=== PATIENT | male | born 1950 | race Caucasian/White ===

== ENCOUNTER 2016-11-25 08:25 | Inpatient (IN) | payer OTHER ==
[~2016-11-25] VITALS: Ht 177.8 cm; Wt 112.9 kg
[2016-11-25] VITALS (25 sets, daily range): BP systolic 82–126; BP diastolic 48–90
--- NOTE | ~2016-11-25 | EKG ---
[address] [place] [address] ELECTROCARDIOGRAM REPORT Name: MARTHA CUMMINS Room #: 209-P ADM IN M.R.#: [id number] Admission: 11/25/16 Attend Phys: Av Borrego MD, Discharge: Date of : 50 Report #: [id number] THIS REPORT FOR: //name// [facility] ED Test Date: 2016-11-25 Test Time: 08:26:22 Pat Name: MARTHA CUMMINS Department: Room: 209 Gender: M Beverage Steward: ALVARO : 1950 Requested By: Ben Salazar Order Number: [id number] : Mark Oliva Measurements Intervals [place] Rate: 53 P: 47 [place]: 187 QRS: -47 QRSD: 107 T: 72 QT: 436 QTc: 410 Interpretive Statements Sinus rhythm Inferoposterior infarct, acute (LCx) Lateral infarct, acute ST depression V1-V3, suggest recording posterior leads Baseline wander in lead(s) II,III,aVR,aVF Compared to ECG 07/22/2011 06:56:45 Myocardial infarct finding now present ST (T wave) deviation now present Incomplete right bundle-branch block no longer present Electronically Signed On 11-26-2016 22:14:48 CDT by Mark Oliva [email or web address] <ELECTRONICALLY SIGNED> By: Mark Oliva MD 11/26/16 2214 5 5 Mark Oliva MD /EPI
--- NOTE | ~2016-11-25 | EKG ---
[address] [address] ELECTROCARDIOGRAM REPORT Name: MARTHA CUMMINS Room #: 209-P [facility] IN M.R.#: [id number] Admission: 11/25/16 Attend Phys: Av Borrego MD, Discharge: Date of : 50 Report #: [id number] THIS REPORT FOR: //name// [facility] Test Date: 2016-11-26 Test Time: 14:32:59 Pat Name: MARTHA CUMMINS Department: Room: 209 Gender: M Product Marketing Intern: lou : 1950 Requested By: Av Borrego Order Number: [id number] MD: Mark Oliva Measurements Intervals [place] Rate: 52 P: 45 [place]: 177 QRS: -90 QRSD: 105 T: 42 QT: 452 QTc: 421 Interpretive Statements Sinus rhythm Inferior infarct, old Compared to ECG 07/22/2011 06:56:45 Myocardial infarct finding now present Incomplete right bundle-branch block no longer present Electronically Signed On 11-26-2016 22:31:22 CDT by Mark Oliva [email or web address] <ELECTRONICALLY SIGNED> By: Mark Oliva MD 11/26/16 2231 1432 1432 Mark Oliva MD /EPI
--- NOTE | ~2016-11-25 | 2DMMODE ---
[facility] [address] [place] [address] 2 D/M-MODE ECHOCARDIOGRAM Name: MARTHA CUMMINS Room #: 209-P ADM IN M.R.#: [id number] Admission: 11/25/16 Attend Phys: Av Borrego, Discharge: Date of : 50 Date of Service: 11/27/16 0947 Report #: [id number] THIS REPORT FOR: //name// APPROVED REPORT Study performed: 11/27/2016 09:00:48 EXAM: Comprehensive 2D, Doppler, and color-flow Echocardiogram Patient Location: Bedside Room #: 209 Status: routine Other Information Study Quality: Good Indications Acute FL Diabetes Chest Pain Hypertension/HDD 2D Dimensions RVDd: 38.26 mm LVEF(%): 50.79 (>50%) IVSd: 8.75 (7-11mm) LVOT Diam: 27.78 (18-24mm) LVDd: 55.65 mm PWd: 10.98 (7-11mm) Ascending Ao: 32.09 (22-36mm) LVDs: 41.07 (25-40mm) Aortic Root: 31.06 mm IVC: 31.00 mm Friedman's LVEF: 50.79 % Volumes Left Atrial Volume (Systole) Single Plane 4CH: 76.59 mL Single Plane 2CH: 69.64 mL LA ESV Index: 34.00 mL/m2 Aortic Valve AoV Peak Wolf.: 1.49 m/s AO Peak Gr.: 8.92 mmHg LVOT Max P.38 mmHg LVOT Max V: 1.05 m/s ELISSA Vmax: 4.25 cm2 Mitral Valve E/A Ratio: 1.2 MV Decel. Time: 185.30 ms MV E Max Wolf.: 1.12 m/s [facility] [place] [address] 2 D/M-MODE ECHOCARDIOGRAM Name: MARTHA CUMMINS [facility] Room #: 209-P [facility] IN M.R.#: [id number] Admission: 11/25/16 Attend Phys: Av Borrego, Discharge: Date of : 50 Date of Service: 11/27/16 0947 Report #: [id number] MV A Wolf.: 0.94 m/s MV PHT: 53.74 ms IVRT: 92.27 ms Pulmonary Valve PV Peak Wolf.: 1.10 m/s PV Peak Gr.: 4.84 mmHg Pulmonary Vein P Vein S: 0.46 m/s P Vein A: 0.24 m/s P Vein D: 0.33 m/s P Vein A Dur.: 110.7 msec P Vein S/D Ratio: 1.39 Tricuspid Valve RAP Estimate: 10.00 mmHg Left Ventricle The left ventricle is normal size. Regional wall motion is not well visualized but grossly normal. There is normal left ventricular wall thickness. The left ventricular systolic function is normal. The left ventricular ejection fraction is within the normal range. LVEF is 50%. Grade II diastolic dysfunction Right Ventricle The right ventricle is normal size. The right ventricular systolic function is normal. Atria Left atrium is borderline dilated. Right atrium is at the upper limits of normal. Aortic Valve The aortic valve is normal in structure. No aortic regurgitation is present. There is no aortic valvular stenosis. Mitral Valve The mitral valve is mildly sclerotic Trace mitral regurgitation. No evidence of mitral valve stenosis. Tricuspid Valve The tricuspid valve is normal in structure. There is no tricuspid valve stenosis. There is no tricuspid valve regurgitation noted. Pulmonic Valve The pulmonary valve is normal in structure. There is no pulmonic valvular regurgitation. [address] [address] 2 D/M-MODE ECHOCARDIOGRAM Name: MARTHA CUMMINS Room #: 209-P [facility] IN [facility]#: [id number] Admission: 11/25/16 Attend Phys: Av Borrego, Discharge: Date of : 50 Date of Service: 11/27/16 0947 Report #: [id number] Great Vessels The aortic root is normal in size. IVC is dilated and collapses >50% with inspiration. Pericardium There is no pericardial effusion. <Conclusion> The left ventricular systolic function is normal. Regional wall motion is not well visualized but grossly normal. LVEF is 50%. Grade II diastolic dysfunction The aortic valve is normal in structure. No aortic regurgitation or stenosis The mitral valve is mildly sclerotic. Trace mitral regurgitation. Pulmonary artery pressure could not be reliably ascertained There is no pericardial effusion. <ELECTRONICALLY SIGNED> By: Av Borrego MD, [facility] 11/27/1647 6 6 Av Borrego MD, FACC /INF
--- NOTE | ~2016-11-25 | EKG ---
[address] [address] ELECTROCARDIOGRAM REPORT Name: MARTHA CUMMINS Room #: 209-P [facility] IN M.R.#: [id number] Admission: 11/25/16 Attend Phys: Av Borrego MD, Discharge: Date of : 50 Report #: [id number] THIS REPORT FOR: //name// [facility] Test Date: 2016-11-25 Test Time: 14:48:59 Pat Name: MARTHA CUMMINS Department: Room: 209 Gender: M Steel Cutter: RALF : 1950 Requested By: Ben Salazar Order Number: [id number] MD: Mark Oliva Measurements Intervals [place] Rate: 52 P: 52 [place]: 207 QRS: 264 QRSD: 110 T: 56 QT: 454 QTc: 423 Interpretive Statements Sinus rhythm Inferior infarct, old Compared to ECG 07/22/2011 06:56:45 Myocardial infarct finding now present Incomplete right bundle-branch block no longer present Electronically Signed On 11-26-2016 22:19:05 CDT by Mark Oliva [email or web address] <ELECTRONICALLY SIGNED> By: Mark Oliva MD 11/26/16 2219 1448 1448 Mark Oliva MD /EPI
--- NOTE | ~2016-11-25 | EKG ---
[address] [address] ELECTROCARDIOGRAM REPORT Name: MARTHA CUMMINS Room #: 209-P [facility] IN M.R.#: [id number] Admission: 11/25/16 Attend Phys: Av Borrego MD, Discharge: Date of : 50 Report #: [id number] THIS REPORT FOR: //name// [facility] Test Date: 2016-11-26 Test Time: 08:00:48 Pat Name: MARTHA CUMMINS Department: Room: 209 Gender: M Pressure Dispatcher: ISMAEL : 1950 Requested By: Av Borergo Order Number: [id number] MD: Mark Oliva Measurements Intervals [place] Rate: 49 P: 48 [place]: 193 QRS: 260 QRSD: 108 T: 48 QT: 471 QTc: 426 Interpretive Statements Sinus bradycardia Probable left atrial enlargement Inferior infarct, old Compared to ECG 07/22/2011 06:56:45 Myocardial infarct finding now present Sinus rhythm no longer present Incomplete right bundle-branch block no longer present Electronically Signed On 11-26-2016 22:26:33 CDT by Mark Oliva [email or web address] <ELECTRONICALLY SIGNED> By: Mark Oliva MD 11/26/166 9 08 Mark Oliva MD /EPI
[~2016-11-25 08:25] MED LIST: ALLOPURINOL 30300 M2 PO; ASPIRIN EC325 M1 PO; BENICAR40 MG PO; CATAPRES-TTS 20.2 MG TD; Effient PO; FISH OIL 1,0001 EAC8 PO; GLIPIZIDE ER10 MG PO; MULTIVITAMINS PO; POTASSIUM20 PO; TORSEMIDE100 MG PO; TRILIPIX135 MG PO; WELCHOL 625 MG PO
[2016-11-25 08:47] LABS: ABSOLUTE NEUTROPHILS 4.8 thou/uL (1.4-8.2); BASOPHILS 0.8 % (0.0-2.0); EOSINOPHILS 0.1 % (0.0-3.0); HEMATOCRIT 48.2 % (42.0-52.0); HEMOGLOBIN 16.7 gm/dL (14.0-18.0); LYMPHOCYTES 35.6 % (24.0-44.0); MCHC 34.7 g/dL (28.0-37.0); MCV 92.2 fL (80.0-100.0); PLATELET COUNT 177 thou/uL (150-400); POLYS 52.5 % (36.0-66.0); RBC 5.23 mil/uL (4.50-6.00); RDW 15.3 % (10.5-14.5); WBC 9.2 thou/uL (4.0-11.0)
[2016-11-25 08:49] LABS: MANUAL DIFF NO
[2016-11-25 08:51] LABS: CALCIUM 9.2 mg/dL (8.5-10.1); CREATININE 0.9 mg/dL (0.7-1.3); POTASSIUM 3.8 mmol/L (3.5-5.1)
[2016-11-25 09:03] LABS: TROPONIN-I 0.05 ng/mL (<0.04-0.07)
[2016-11-25] MEDS ORDERED: ALLOPURINOL 30300 M2 PO (09:45)
[2016-11-25] MEDS ORDERED: DEMADEX20 MG PO (09:45)
[2016-11-25] MEDS ORDERED: MICARDIS 80 MG80 MG PO (09:47)
[2016-11-25 20:06] LABS: GLYCOHEMOGLOBIN (HGB A1C) 5.4 % (4.8-5.6)
[2016-11-26] VITALS (13 sets, daily range): BP systolic 94–153; BP diastolic 42–88
[2016-11-26 04:46] LABS: HEMATOCRIT 41.1 % (42.0-52.0); MCH 31.7 pg (26.0-34.0); MCHC 34.2 g/dL (28.0-37.0); MCV 92.8 fL (80.0-100.0); RBC 4.43 mil/uL (4.50-6.00); RDW 15.4 % (10.5-14.5); WBC 8.7 thou/uL (4.0-11.0)
[2016-11-26 04:52] LABS: HEMOGLOBIN 14.1 gm/dL (14.0-18.0)
[2016-11-26 05:01] LABS: CHOLESTEROL 165 mg/dL (<200); HDL CHOLESTEROL 33 mg/dL (>40); LDL CHOLESTEROL 84 mg/dL (<100); TRIGLYCERIDE 243 mg/dL (<150); VLDL 49 mg/dL (<40)
[2016-11-26 05:05] LABS: CALCIUM 7.8 mg/dL (8.5-10.1); CREATININE 0.7 mg/dL (0.7-1.3); POTASSIUM 3.7 mmol/L (3.5-5.1)
[2016-11-26 05:06] LABS: SERUM ASSESSMENT Clear
[2016-11-26 05:41] LABS: TROPONIN-I 60.67 ng/mL (<0.04-0.07)
[2016-11-27 04:02] VITALS: BP 127/79
[2016-11-27] MEDS ORDERED: HOME MEDICATION PO (07:41)
[2016-11-27] MEDS ORDERED: METOPROLOL SUCC50 MG PO ×2 (07:41→07:55)
[2016-11-27] MEDS ORDERED: EFFIENT10 MG PO (07:41)
[2016-11-27 08:05] VITALS: BP 136/73
[2016-11-27 09:41] VITALS: BP 136/73
[2016-11-27 09:50] VITALS: BP 136/73
[2016-11-27 10:37] VITALS: BP 136/73
== END 2016-11-27 10:28 | disposition home or self-care (01) | DRG 247 ==
LOC: ER 08:25 → 2N 09:34 → EROBS 09:34 → ICU 09:34 → 2N 11-26 14:40
PROVIDERS: Emergency Medicine; Internal Medicine
PROC: 4A023N7 Measurement of Cardiac Sampling and Pressure, Left Heart, Percutaneous Approach (ICD-10-PCS; principal; 2016-11-25)
PROC: 027034Z Dilation of Coronary Artery, One Artery with Drug-eluting Intraluminal Device, Percutaneous Approach (ICD-10-PCS; principal; 2016-11-25)
PROC: B2111ZZ Fluoroscopy of Multiple Coronary Arteries using Low Osmolar Contrast (ICD-10-PCS; principal; 2016-11-25)
DX: I21.3 ST elevation (STEMI) myocardial infarction of unspecified site (principal); Z96.612 Presence of left artificial shoulder joint; M10.9 Gout, unspecified; I50.9 Heart failure, unspecified; E11.9 Type 2 diabetes mellitus without complications; M19.90 Unspecified osteoarthritis, unspecified site; G47.33 Obstructive sleep apnea (adult) (pediatric); I65.23 Occlusion and stenosis of bilateral carotid arteries; E78.5 Hyperlipidemia, unspecified; I11.0 Hypertensive heart disease with heart failure; F17.210 Nicotine dependence, cigarettes, uncomplicated; I25.10 Atherosclerotic heart disease of native coronary artery without angina pectoris; E78.00 Pure hypercholesterolemia, unspecified; E66.9 Obesity, unspecified; Z98.84 Bariatric surgery status; Z79.82 Long term (current) use of aspirin; Z79.899 Other long term (current) drug therapy; Z68.35 Body mass index [BMI] 35.0-35.9, adult; Z95.5 Presence of coronary angioplasty implant and graft; Z88.0 Allergy status to penicillin; Z86.711 Personal history of pulmonary embolism; Z82.3 Family history of stroke; Z82.49 Family history of ischemic heart disease and other diseases of the circulatory system
CPT/HCPCS: 10078; 10081

== ENCOUNTER → 2019-07-02 | Outpatient (CLI) | payer OTHER ==
[~2019-07-02] MED LIST changes: +DEMADEX20 MG PO; +EFFIENT10 MG PO; +HOME MEDICATION PO; +METOPROLOL SUCC50 MG PO; +MICARDIS 80 MG80 MG PO
== END ==
LOC: SJCVCIMAG 07:51 → NUC 13:21 → SJCVCIMAG 14:34
DX: I08.0 Rheumatic disorders of both mitral and aortic valves (principal); I25.10 Atherosclerotic heart disease of native coronary artery without angina pectoris; I11.0 Hypertensive heart disease with heart failure; I50.32 Chronic diastolic (congestive) heart failure; I26.99 Other pulmonary embolism without acute cor pulmonale; E78.5 Hyperlipidemia, unspecified; E11.9 Type 2 diabetes mellitus without complications

== ENCOUNTER → 2020-01-16 | Outpatient (CLI) | payer OTHER | LOC: SJCVC 11:01 | PROVIDERS: ATTEND Internal Medicine | DX: I25.10 Atherosclerotic heart disease of native coronary artery without angina pectoris (principal); R94.31 Abnormal electrocardiogram [ECG] [EKG]; I11.0 Hypertensive heart disease with heart failure; I50.32 Chronic diastolic (congestive) heart failure; I26.99 Other pulmonary embolism without acute cor pulmonale; E78.5 Hyperlipidemia, unspecified; I65.23 Occlusion and stenosis of bilateral carotid arteries; E11.9 Type 2 diabetes mellitus without complications; Z79.899 Other long term (current) drug therapy; Z87.891 Personal history of nicotine dependence ==

== ENCOUNTER → 2020-07-21 | Outpatient (CLI) | payer OTHER | LOC: SJCVC 10:37 | PROVIDERS: ATTEND Internal Medicine | DX: R94.31 Abnormal electrocardiogram [ECG] [EKG] (principal); R00.1 Bradycardia, unspecified; I45.19 Other right bundle-branch block; I25.10 Atherosclerotic heart disease of native coronary artery without angina pectoris; I11.0 Hypertensive heart disease with heart failure; I50.32 Chronic diastolic (congestive) heart failure; I65.23 Occlusion and stenosis of bilateral carotid arteries; E78.5 Hyperlipidemia, unspecified; E11.9 Type 2 diabetes mellitus without complications; I26.99 Other pulmonary embolism without acute cor pulmonale; Z79.899 Other long term (current) drug therapy; Z87.891 Personal history of nicotine dependence ==

== ENCOUNTER → 2020-11-18 | Outpatient (CLI) | payer OTHER | LOC: SJCVC 10:45 | PROVIDERS: ATTEND Internal Medicine | DX: R94.31 Abnormal electrocardiogram [ECG] [EKG] (principal); R00.1 Bradycardia, unspecified; I25.10 Atherosclerotic heart disease of native coronary artery without angina pectoris; I11.0 Hypertensive heart disease with heart failure; I50.32 Chronic diastolic (congestive) heart failure; I26.99 Other pulmonary embolism without acute cor pulmonale; E78.5 Hyperlipidemia, unspecified; I65.23 Occlusion and stenosis of bilateral carotid arteries; E11.9 Type 2 diabetes mellitus without complications; M10.9 Gout, unspecified; I34.0 Nonrheumatic mitral (valve) insufficiency; Z79.899 Other long term (current) drug therapy; Z87.891 Personal history of nicotine dependence; Z72.89 Other problems related to lifestyle ==

== ENCOUNTER → 2021-01-05 | Outpatient (CLI) | payer OTHER | LOC: SJCVCIMAG 12-29 08:45 | PROVIDERS: ATTEND Internal Medicine | DX: R94.31 Abnormal electrocardiogram [ECG] [EKG] (principal); I45.10 Unspecified right bundle-branch block; I65.23 Occlusion and stenosis of bilateral carotid arteries; I25.10 Atherosclerotic heart disease of native coronary artery without angina pectoris; I11.0 Hypertensive heart disease with heart failure; I50.32 Chronic diastolic (congestive) heart failure; I26.99 Other pulmonary embolism without acute cor pulmonale; E78.5 Hyperlipidemia, unspecified; I10 Essential (primary) hypertension; E11.9 Type 2 diabetes mellitus without complications; E78.00 Pure hypercholesterolemia, unspecified; E66.9 Obesity, unspecified; Z87.891 Personal history of nicotine dependence; Z72.89 Other problems related to lifestyle; Z79.899 Other long term (current) drug therapy ==

== ENCOUNTER → 2021-07-08 | Outpatient (CLI) | payer OTHER | LOC: SJCVCIMAG 09:02 | PROVIDERS: ATTEND Internal Medicine | DX: I65.23 Occlusion and stenosis of bilateral carotid arteries (principal); I11.0 Hypertensive heart disease with heart failure; I25.10 Atherosclerotic heart disease of native coronary artery without angina pectoris; I50.32 Chronic diastolic (congestive) heart failure; I26.99 Other pulmonary embolism without acute cor pulmonale; E78.5 Hyperlipidemia, unspecified; E11.9 Type 2 diabetes mellitus without complications; E66.9 Obesity, unspecified; Z90.49 Acquired absence of other specified parts of digestive tract; Z98.890 Other specified postprocedural states; Z79.899 Other long term (current) drug therapy ==